=== PATIENT | male | born 1965 | race American Indian/Alaskan Native ===

== ENCOUNTER 2018-04-23 21:34 | Emergency (ER) | payer BC, MEDICAID, OTHER ==
[2018-04-23 21:48] VITALS: BP 155/87; PULSE 75; RESP 16; TEMP 98.3; O2SAT 98
--- NOTE | 2018-04-23 22:47 | C.PDOC ---
History Of Present Illness 52 yo male come in for evaluation of Right knee pain gradually developed for past week. Pt reports, " few days ago fell down by accident landed onto my Right knee". Pt admits, pain is localized over Right knee, " was getting better over time but today worsen after was going upstairs and have heard some pop in my right knee". Pt sts, pain is worse with weight bearing. Otherwise, pt denies head injury, LOC, syncope, headache, dizziness, denies skin changes, deformity, swelling to Right knee, denies weakness, sensory or vascular deficits to Right leg, denies Right calf pain. Ambulate to ED, appears in pain. Time Seen by Provider: 04/23/18 21:40 Chief Complaint (Nursing): Lower Extremity Problem/Injury History Per: Patient Past Medical History Reviewed: Historical Data, Nursing Documentation, Vital Signs Vital Signs: Last Vital Signs Temp 98.3 F 04/23/18 21:46 Pulse 75 04/23/18 21:46 Resp 16 04/23/18 21:46 BP 155/87 H 04/23/18 21:46 Pulse Ox 98 04/23/18 21:46 - Medical History PMH: CAD, Diabetes, HTN, Hypercholesterolemia Surgical History: Coronary Stent Other Surgeries: PTCA Family History: States: Unknown Family Hx - Social History Hx Tobacco Use: Yes Hx Alcohol Use: Yes (social) Hx Substance Use: No - Immunization History Hx Tetanus Toxoid Vaccination: No Hx Influenza Vaccination: No Hx Pneumococcal Vaccination: No Review Of Systems Except As Marked, All Systems Reviewed And Found Negative. Constitutional: Negative for: Fever, Chills ENT: Negative for: Throat Pain Cardiovascular: Negative for: Chest Pain, Palpitations, Edema, Light Headedness Respiratory: Negative for: Cough, Shortness of Breath Musculoskeletal: Positive for: Other (Right knee pain). Negative for: Neck Pain, Back Pain Skin: Negative for: Bruising Neurological: Negative for: Weakness, Numbness, Headache, Dizziness Physical Exam - Physical Exam Appears: Well, Non-toxic, No Acute Distress Skin: Normal Color, Warm, No Ecchymosis Head: Atraumatic, Normacephalic Eye(s): bilateral: PERRL Neck: No Midline Cervical Tenderness, No Paracervical Tenderness, No Step Off Deformity, Supple Back: No Vertebral Tenderness Extremity: Normal ROM (discomfort to Right knee flexion due to pain. NO edema, no erythema, no palpable deformity.), Tenderness (over anterior spect Right knee), Capillary Refill (less than 2sec to Right foot), No Deformity, No Swelling Neurological/Psych: Oriented x3, Normal Speech, Normal Motor, Normal Sensation, Normal Reflexes ED Course And Treatment O2 Sat by Pulse Oximetry: 98 Pulse Ox Interpretation: Normal - Other Rad Right knee X-Ray: Interpreted by Me, Viewed By Me Interpretation: (+) mild DJD, no acute fx or dislocation Progress Note: On re-eval, pt is afebrile, hemodynamicaly stable. non-toxic. Right knee: mild tenderness anterior aspect Right knee, NO edema, no erythema, no palpable deformity. FAROM, no neurovascular deficits. Imaging review (+) mild DJD, no acute fx or dislocation. KNee immobilizer applied to Right knee. Pt advised. ref. to f/u with PMD, Ortho in 2-3 days for re-eavl. return to ED if any worsening or new changes. Disposition Counseled Patient/Family Regarding: Studies Performed, Diagnosis, Need For Followup, Rx Given - Disposition Referrals: Cruz Lakhani MD [Staff Provider] - Temo Tsai III, MD [Staff Provider] - Disposition: HOME/ ROUTINE Disposition Time: 22:43 Condition: STABLE Additional Instructions: Knee immobilizer for 1-2 weeks Avoid steps for 1 week Take pain medication as prescribed Follow up with Orthopedist in 2-3 days for re-evaluation. return to ED if any worsening or new changes. Prescriptions: traMADol [Ultram] 50 mg PO TID #7 tab Instructions: Osteoarthritis (DC), Knee Sprain (DC) Forms: [employer] (Tongan) - Clinical Impression Clinical Impression: Arthralgia of knee
--- NOTE | 2018-04-24 14:27 | RAD ---
Date of service: 04/23/2018 PROCEDURE: Right Knee Radiographs. HISTORY: pain COMPARISON: None. FINDINGS: BONES: No definitive evidence of acute displaced fracture nor dislocation. The osseous structures appear grossly intact. If symptoms persist or occult fracture suspected clinically recommend followup CT scan or MRI.. JOINTS: Mild degenerative osteoarthritis most notably affecting the medial compartment. JOINT EFFUSION: Small to medium size suprapatellar joint effusion. OTHER FINDINGS: None. IMPRESSION: No definitive evidence of acute displaced fracture nor dislocation. The osseous structures appear grossly intact. If symptoms persist or occult fracture suspected clinically recommend followup CT scan or MRI.. Mild DJD
== END 2018-04-23 23:40 | disposition home or self-care (01) ==
LOC: C.ER 21:34
DX: M25.561 Pain in right knee (principal)